=== PATIENT | male | born 1975 | race African-American/Black ===

== ENCOUNTER 2017-05-24 22:48 | Emergency (ER) | payer MEDICAID ==
[~2017-05-24] VITALS: Ht 180.3 cm; Wt 76.0 kg
[2017-05-25] MEDS: PREDNISONE 20MG TABLET PO ONE ×2 (01:41→01:48)
[2017-05-25 02:10] VITALS: BP 129/72
== END 2017-05-25 02:14 | disposition home or self-care (01) ==
LOC: ER 22:48 → EDUNIT# 22:48 → ER 05-25 02:14
DX: R21 Rash and other nonspecific skin eruption (principal); L30.9 Dermatitis, unspecified; Z88.8 Allergy status to other drugs, medicaments and biological substances
CPT/HCPCS: 99283; J7512

== ENCOUNTER 2017-06-02 22:23 | Emergency (ER) | payer MEDICAID ==
[~2017-06-02] VITALS: Ht 180.3 cm; Wt 78.0 kg
[2017-06-03 05:19] LABS: BASOPHILS % 0.8 % (0.0-2.0); EOSINOPHILS % 6.1 % (0.0-5.0); HEMATOCRIT. 38.5 % (42.0-52.0); HEMOGLOBIN. 13.1 g/dL (14.0-18.0); LYMPHOCYTES % 30.4 % (20.0-50.0); MEAN CORPUSCULAR HEMOGLOBIN 24.7 pg (28.0-32.0); MEAN CORPUSCULAR VOLUME 72.3 fL (80.0-94.0); MEAN PLATELET VOLUME 9.2 fl (7.4-10.4); MONOCYTES % 9.3 % (2.0-8.0); NEUTROPHILS % 53.4 % (40.0-76.0); PLATELET 238 x1000/uL (130-400); RED BLOOD CELL COUNT 5.33 mill/uL (4.7-6.1); RED CELL DISTRIBUTION WIDTH 15.4 % (11.6-14.6)
[2017-06-03 05:26] LABS: CHLORIDE 108 mEq/L (98-107)
[2017-06-03 07:21] VITALS: BP 116/81
== END 2017-06-03 07:22 | disposition home or self-care (01) ==
LOC: ER 06-03 01:46
DX: L03.113 Cellulitis of right upper limb (principal); M25.521 Pain in right elbow; Z88.8 Allergy status to other drugs, medicaments and biological substances
CPT/HCPCS: 36415; 73080; 80053; 85025; 99285; Z7610